=== PATIENT | male | born 1970 | race Hispanic/Latino ===

== ENCOUNTER 2018-04-24 21:03 | Emergency (ER) | payer OTHER | END 2018-04-24 21:35 | disposition home or self-care (01) | LOC: EDH 21:03 | DX: K64.9 Unspecified hemorrhoids (principal); Z72.0 Tobacco use | CPT/HCPCS: 99281 ==

== ENCOUNTER 2022-04-02 18:43 | Emergency (ER) | payer OTHER ==
[~2022-04-02] VITALS: Ht 175.3 cm; Wt 86.2 kg
[2022-04-02 19:08] LABS: BASOPHILS % (AUTO) 0.4 % (0.0-5.0); EOSINOPHILS % (AUTO) 0.9 % (0.0-8.0); HEMATOCRIT 46.4 % (42-54); LYMPHOCYTES % (AUTO) 32.6 % (21.0-51.0); MEAN CORPUSCULAR HGB CONC 34.1 g/dL (32.0-36.0); MEAN CORPUSCULAR VOLUME 91.2 fL (79-99); MONOCYTES % (AUTO) 8.6 % (3.0-13.0); NEUTROPHILS % (AUTO) 57.2 % (40.0-77.0); PLATELET COUNT (AUTO) 235 K/uL (130-400); RED BLOOD CELL COUNT(AUTO) 5.09 MIL/uL (4.50-6.20); RED CELL DISTRIBUTION WIDTH 12.9 % (11.0-15.5); WHITE BLOOD COUNT (AUTO) 9.3 K/uL (4.8-10.8)
[2022-04-02 19:21] LABS: CREATININE 1.3 mg/dL (0.5-1.5); POTASSIUM 3.5 mmol/L (3.5-5.1)
[2022-04-02 19:25] LABS: ALBUMIN 3.3 g/dL (3.5-5.0); BILIRUBIN,TOTAL 0.3 mg/dL (0.2-1.0); TOTAL PROTEIN, SERUM 9.7 g/dL (6.0-8.3)
[2022-04-02] MEDS ORDERED: ACET500P24 PO (20:05)
[2022-04-02] MEDS ORDERED: OSEL75 PO (20:05)
[2022-04-02] MEDS ORDERED: LORA10TA7 PO (20:05)
[2022-04-02] MEDS ORDERED: FLUT16H NASAL (20:05)
[2022-04-02 20:08] VITALS: BP 151/88
[2022-04-02] MEDS ORDERED: ACETAMINOPHEN 500 MG TABLET PO ONE (20:30)
== END 2022-04-02 20:18 | disposition home or self-care (01) ==
LOC: EDH 18:43
DX: J10.1 Influenza due to other identified influenza virus with other respiratory manifestations (principal); Z20.822 Contact with and (suspected) exposure to COVID-19
CPT/HCPCS: 36415; 71045; 80053; 84484; 85025; 87635; 87804 ×2; 93005; 99285; C9803